=== PATIENT | male | born 1980 | race Caucasian/White ===

== ENCOUNTER 2025-10-01 12:47 | Emergency (ER) | payer BC, SELFPAY ==
[2025-10-01] VITALS (14 sets, daily range): BP systolic 107–128; BP diastolic 69–94; PULSE 79–99; RESP 15–28; TEMP 37.2; O2SAT 96–100
--- NOTE | ~2025-10-01 | XR_ITS ---
EXAMINATION: XR chest 2V, 10/01/2025 13:52 [facility]CA[facility]RI[facility] HISTORY: chest pain COMPARISON: No comparisons available. Technique: 2 views obtained. Findings: The lungs are clear, no effusion. No pneumothorax. Heart is normal size. Mediastinal and hilar contours are within normal limits. Bony thorax no acute abnormality. Impression: No acute cardiopulmonary abnormality. Reviewed, dictated and finalized at location P. TO PANCAKE [facility]RIER Impression: No acute cardiopulmonary abnormality.
--- NOTE | 2025-10-01 12:49 | ECG_ITS ---
Test Date: 2025-10-01 12:53:12 Measurements Intervals [place] Rate: 79 P: 75 HI: 142 QRS: 52 QRSD: 87 T: 60 QT: 338 QTc: 388 Interpretive Statements SINUS RHYTHM No previous ECG available for comparison Electronically Signed On 10-01-2025 14:08:37 RESPIRATORY THERAPIST by Joel Solitario M.D.
[2025-10-01] MEDS: Please add drug allergy info to patient profile. 1 EACH XX (12:57)
[2025-10-01 13:00] LABS: Hematocrit 40.2 % (42.0-52.0); Hemoglobin 13.9 g/dL (14.0-18.0); Immature Granulocyte Percent A 0.4 % (0-0.5); Lymphocytes Absolute Auto 0.88 K/mm3 (0.9-3.2); Mean Corpuscular HGB Conc 34.6 g/dl (32-36); Mean Corpuscular Hemoglobin 31.2 pg (26-34); Mean Corpuscular Volume 90.3 fl (80-100); Nucleated Red Blood Cells Absolute Auto 0.000 K/mm3 (0.0-0.012); Nucleated Red Blood Cells Perc 0.0 % (0.0-0.2); Platelet Count Result 149 k/mm3 (150-375); Red Blood Count 4.45 M/mm3 (4.6-6.20); White Blood Count 7.1 K/mm3 (4.5-10.0)
[2025-10-01 13:15] LABS: INR 1.0; Prothrombin Time 13.0 Seconds (11.1-14.7)
--- OUTSIDE RECORDS SUMMARY | 2025-10-01 13:15 | XMS_ITS | Clinical Summary ---
Author Organization [facility] Address [address] [place] [address] Care Team Providers Care Collar Runner Name Role Phone No, Physician Primary Care Provider [phone] Allergies No known active allergies Medications No known medications Active Problems Problem Noted Date Diagnosed Date Perianal abscess 03/18/2022 Encounters Date Type Department Care Team Description 09/16/2025 1:45 PM MANAGER LOCAL Procedure visit [facility] Acute [facility] Services [address] [place] [address] [place] [id number] Pilonidal cyst (Primary Dx) 09/15/2025 Telephone [facility] Acute and Critical Care Services [address] [place] [address] [place] [address] [phone] Ingrid Canales RN Appointment Reminder Call 08/25/2025 Telephone [facility] Acute and Critical Care Services [address] [place] [phone] Ingrid Canales RN Pilonidal Cyst from Last 3 Months Immunizations Immunization Administration Dates Next Due DTP 06/11/1988, 4,07/01/1983,02/26,1982 Influenza, Quadrivalent, Spl it, Preservative Free, Intramuscular 08/02/2019,07/30/2018 MMR 06/11/1993,01/08/1984 OPV 06/11/1988, 4,07/01/1983,02/26,1982 Td, adsorbed 06/21/1997 Tdap 04/29/2016 Social History Tobacco Use Types Packs/Day Years Used Date Smoking Tobacco: Former Cigarettes S tarted: 11/10/1994 Tobacco Cessation:Counseling Given: Not Answered Alcohol Use Standard Drinks/Week Comments Yes 0 (1 standard drink = 0.6 oz pur e alcohol) AUDIT-C Answer Date Recorded Q1: How often do you have a drink containing alc ohol? Monthly or less 09/16/2025 Q2: How many drinks containi ng alcohol do you have on a typical day when you are drinking? 1 or 2 09/16/2025 Q3: How often do you have si x or more drinks on one occasion? Never 09/16/2025 Hunger Vital Sign Answer Date Recorded Within the past 12 months, y ou worried that your food would run out before you got the money to buy more. Never true 09/16/20 25 Within the past 12 months, t he food you bought just didn't last and you didn't have money to get more. Never true 09/16/2025 Personal Safety Answer Date Recorded Have you ever been in or are you currently in a harmful physical or emotional relationship or is someone making you feel afraid or unsafe? Denies 01/18/2025 Sex and Gender Information Value Date Recorded Sex Assigned at Not on file Legal Sex Male 10:19 AM CDT Gender Identity Not on file Sexual Orientation Not on file Last Filed Vital Signs Vital Sign Reading Time Taken Comments Blood Pressure 119/77 09/16/2025 1:43 PM MANAGER LOCAL Pulse 52 09/16/2025 1:43 PM MANAGER LOCAL Temperature 36.2 C (97.2 F) 09/16/2025 12:54 PM MANAGER LOCAL Respiratory Rate 16 03/04/2025 2:20 PM CDT Oxygen Saturation 96% 09/16/2025 1:43 PM MANAGER LOCAL Inhaled Oxygen Concentration - - Weight 63.5 kg (139 lb 14.4 oz) 025 12:54 PM MANAGER LOCAL Height 180.3 cm (5' 11) 09/16/2025 12: 54 PM MANAGER LOCAL Body Mass Index 19.51 09/16/2025 12:54 PM MANAGER LOCAL Plan of Treatment Health Maintenance Due Date Last Done Comments Depression Screening 1982 Hepatitis C Screening 1982 Varicella Vaccines (1 of 2 - 13+ 2-dose series) 1995 Hepatitis B Screening 2000 Regular Well Visit/Exam 18-64 2000 HPV Vaccines (1 - 3-dose SCDM series) 2009 Covid-19 Vaccine (3 - 2024- season) 2025 01/22/2021, 12/21/2020 Influenza Vaccine (#1) 2025 08/02/2019, 2017 DTaP/Tdap/Td Vaccine (7 - Td or Tdap) 04/29/2026 04/29/2016, 06/21/1997, 06/11/1988, Additional history exists Pneumococcal vaccine <65 Aged Out No longer eligible based on patient's age to complete this topic Insurance [employer] [place] [employer] [place] Care Teams Collar Runner Relationship Specialty Start Date End Date No, Physician PCP - General 01/18/25
[2025-10-01 13:16] LABS: Partial Thromboplastin Time 33.2 Seconds (22.3-36.8)
[2025-10-01 13:18] LABS: Alanine Aminotransferase 17 U/L (6-50); Albumin Level 3.9 g/dL (3.5-5.1); Alkaline Phosphatase 56 U/L (38-126); Anion Gap 8 mmol/L (4-12); Aspartate Amino Transferase 25 U/L (17-59); Bilirubin,Total 0.3 mg/dL (0.2-1.3); Blood Urea Nitrogen 8 mg/dL (9-20); Calcium 8.6 mg/dL (8.4-10.2); Carbon Dioxide 28 mmol/L (22-30); Chloride 97 mmol/L (98-107); Estimated CRCL calculation 86 ml/min; Estimated Glomerular Filt Rate > 60; Glucose 102 mg/dL (65-110); Lipase 52 U/L (23-300); Potassium 3.5 mmol/L (3.4-5.0); Sodium 133 mmol/L (137-145); Total Protein 7.0 g/dL (6.3-8.2)
[2025-10-01 13:29] LABS: Troponin I < 0.012 ng/mL (0.000-0.034)
[2025-10-01] MEDS: IPRATROPIUM 0.5 MG/ALBUTEROL SULFATE 2.5 MG (BASE) AMPUL.NEB 3 ML INHALATION (13:34)
[2025-10-01] MEDS: KETOROLAC 30 MG/ML VIAL (*BKC) IV PUSH (13:38)
[2025-10-01] MEDS: SODIUM CHLORIDE 0.9% IV 1,000 ML 999 ML IV CONT (13:38)
--- NOTE | 2025-10-01 14:29 | ED_ITS ---
HPI - General Adult General Chief complaint: Chest Pain Stated complaint: chest pain Time Seen by Provider: 10/01/25 12:50 History of Present Illness HPI narrative: Patient is a 45-year-old male who presents ER with body aches and generalized fatigue. Recently diagnosed with influenza after having a swab at an urgent care in [place]. He has been having fevers and chills. He has mild cough that is not productive. He has some discomfort in his chest with coughing as well. No alleviating factors for his body aches or pain but has not tried any medications. He is concerned that he may be developing pneumonia. Related Data Allergies Allergy/AdvReac Type Severity Reaction Status Date / Time No Known Allergies Allergy Verified 10/01/25 12:57 Review of Systems 2 Review of Systems: All systems reviewed & are unremarkable except as noted in HPI and below Constitutional: Constitutional: Reports no additional constitutional complaints Cardiovascular: Cardiovascular: Reports no additional cardiovascular complaints Respiratory: Respiratory: Reports no additional respiratory complaints Gastrointestinal: Gastrointestinal: Reports no additional gastrointestinal complaints Musculoskeletal: Musculoskeletal: Reports no additional musculoskeletal complaints Exam 2 Narrative: GENERAL: Well-appearing, well-nourished, and in no acute distress. HEAD: Normocephalic, atraumatic. ENT: Mucous membranes moist. CHEST: Mild crackles breathing with good air movement. No respiratory distress. HEART: Regular rate and rhythm. Normal peripheral pulses. ABDOMEN: Soft, nontender, nondistended. EXTREMITIES: Normal range of motion. No edema. SKIN: Warm, dry, no rash. NEURO: Alert and oriented x3. PSYCH: Normal mood and affect. Course Course Emergency Course: Patient feels much better after fluids/Toradol/DuoNeb. Lungs clear. No pneumonia. Appropriate for discharge home. Vital Signs Vital signs: Vital Signs Temperature 98.9 F 10/01/25 12:52 Pulse Rate 85 10/01/25 12:52 Respiratory Rate 28 H 10/01/25 12:52 Blood Pressure 123/90 10/01/25 12:52 Pulse Oximetry 100 10/01/25 12:52 Oxygen Delivery Room Air 10/01/25 12:52 Temperature 98.9 F 10/01/25 12:52 Pulse Rate 90 10/01/25 14:01 Respiratory Rate 26 H 10/01/25 14:01 Blood Pressure 117/69 10/01/25 14:01 Pulse Oximetry 97 10/01/25 14:01 Oxygen Delivery Room Air 10/01/25 14:14 Medical Decision Making Differential Diagnosis Differential Diagnosis: Pneumonia, influenza, ACS, sepsis, GENO Medical Records Medical records reviewed: Yes I reviewed the external patient's medical records. Vital Signs Vital Signs: Vital Signs Temperature 98.9 F 10/01/25 12:52 Pulse Rate 85 10/01/25 12:52 Respiratory Rate 28 H 10/01/25 12:52 Blood Pressure 123/90 10/01/25 12:52 Pulse Oximetry 100 10/01/25 12:52 Oxygen Delivery Room Air 10/01/25 12:52 Temperature 98.9 F 10/01/25 12:52 Pulse Rate 90 10/01/25 14:01 Respiratory Rate 26 H 10/01/25 14:01 Blood Pressure 117/69 10/01/25 14:01 Pulse Oximetry 97 10/01/25 14:01 Oxygen Delivery Room Air 10/01/25 14:14 Lab Data Lab results reviewed: Yes I reviewed the patient's lab results. 10/01/25 12:55 10/01/25 12:55 Labs: Lab Results 10/01/25 Range/Units 12:55 WBC 7.1 (4.5-10.0) K/mm3 RBC 4.45 L (4.6-6.20) M/mm3 Hgb 13.9 L (14.0-18.0) g/dL Hct 40.2 L (42.0-52.0) % MCV 90.3 (80-100) fl MCH 31.2 (26-34) pg MCHC 34.6 (32-36) g/dl RDW 11.9 (11.5-14.5) % Plt Count 149 L (150-375) k/mm3 MPV 9.4 (7.4-10.4) fl Immature Gran % (Auto) 0.4 (0-0.5) % Neut % (Auto) 78.3 H (45.5-73.1) % Lymph % (Auto) 12.5 L (18.3-44.2) % Douglas % (Auto) 8.5 (2.6-8.5) % Eos % (Auto) 0.0 (0-4.4) % Baso % (Auto) 0.3 (0.2-1.2) % Lymph # (Auto) 0.88 L (0.9-3.2) K/mm3 Douglas # (Auto) 0.6 (0.1-0.6) K/mm3 Eos # (Auto) 0.0 (0-0.3) K/mm3 Baso # (Auto) 0.0 (0.0-0.1) K/mm3 Abs Immat Gran (auto) 0.03 (0.00-0.031) K/mm3 Absolute Neuts (auto) 5.5 (1.3-6.7) K/mm3 Absolute Nucleated RBC 0.000 (0.0-0.012) K/mm3 Nucleated RBC % 0.0 (0.0-0.2) % PT 13.0 (11.1-14.7) Seconds INR 1.0 APTT 33.2 (22.3-36.8) Seconds Sodium 133 L (137-145) mmol/L Potassium 3.5 (3.4-5.0) mmol/L Chloride 97 L (98-107) mmol/L Carbon Dioxide 28 (22-30) mmol/L Anion Gap 8 (4-12) mmol/L BUN 8 L (9-20) mg/dL Creatinine 0.86 (0.7-1.3) mg/dL Estim Creat Clear Calc 86 ml/min Estimated GFR > 60 (59 - ) Glucose 102 (65-110) mg/dL Calcium 8.6 (8.4-10.2) mg/dL Total Bilirubin 0.3 (0.2-1.3) mg/dL AST 25 (17-59) U/L ALT 17 (6-50) U/L Alkaline Phosphatase 56 (38-126) U/L Troponin I < 0.012 (0.000-0.034) ng/mL Total Protein 7.0 (6.3-8.2) g/dL Albumin 3.9 (3.5-5.1) g/dL Lipase 52 (23-300) U/L Imaging Data Radiologist's impression: ITS Impressions Chest X-Ray 10/01/25 14:06 Impression: No acute cardiopulmonary abnormality. ECG Data EKG #1: ECG completion date: 10/01/25 ECG completion time: 12:53 EKG Interpretation: normal rate (79), sinus rhythm, no ST changes, normal QRS and NL axis Discharge Plan Discharge Clinical Impression: Influenza A, Myalgia Patient Disposition: Home Condition: Stable Instructions: Influenza (ED) Additional Instructions: As discussed you have a viral illness. Unfortunately there are no specific medications we can give you to make the illness end faster. Antibiotics do not work for viral illnesses. However, you can take Acetaminophen or Ibuprofen to help with fevers and pain. Stay well hydrated and rested. Return to the emergency department if your fevers and chills continue to worse after 5 days, if you develop worsening cough with thick sputum, or are unable to stay hydrated. Contact your primary care provider in the next few days for a re-evaluation and to make sure your symptoms are improving. Patient Language: Polish Prescriptions: New naproxen 375 mg tablet 375 mg PO BID Qty: 14 0RF albuterol sulfate 90 mcg/actuation HFA aerosol inhaler 4 puff inhalation QID PRN (Reason: shortness of breath or wheezing) Qty: 8.5 0RF Follow-up/Referrals: Evelyn,Jared Cole MD [Primary Care Provider, Unknown] - 1 Week
== END 2025-10-01 14:57 | disposition home or self-care (01) ==
PROVIDERS: Emergency Medicine; Emergency Provider Emergency Medicine; PCP Emergency Medicine
DX: J10.1 Influenza due to other identified influenza virus with other respiratory manifestations (principal); M79.10 Myalgia, unspecified site
CPT/HCPCS: 36415; 71046; 80053; 83690; 84484; 85025; 85610; 85730; 93005; 94640; 96361; 96374; 99284; J1885; J7030